=== PATIENT | female | born 1955 | race Caucasian/White ===

== ENCOUNTER → 2016-08-26 | Outpatient (CLI) | payer OTHER ==
--- NOTE | 2016-08-26 11:30 | EKG ---
[address] [address] Measurements Intervals [place] Rate: 61 P: 72 AK: 141 QRS: 74 QRSD: 118 T: 67 QT: 405 QTc: 407 Interpretive Statements SINUS RHYTHM MODERATE INTRAVENTRICULAR CONDUCTION DELAY [110+ ms QRS DURATION] No previous ECG available for comparison Electronically Signed On 09-01-16 09:39:28 MDT by Elmer Okeefe MD [email or web address]
[2016-08-26 11:55] LABS: HEMATOCRIT 43.2 % (37.0-47.0); HEMOGLOBIN 13.9 g/dL (12.0-16.0); MEAN CORPUSCULAR HEMOGLOBIN 28.5 PG (27-31); MEAN CORPUSCULAR HGB CONC 32.2 g/dL (33-37); MEAN CORPUSCULAR VOLUME 88.7 FL (81-99); MEAN PLATELET VOLUME 9.2 FL (7.4-12.2); RED BLOOD COUNT 4.87 10^6/uL (4.20-5.40)
[2016-08-26 12:10] LABS: BLOOD UREA NITROGEN 15 mg/dL (7-22)
[2016-08-26 12:11] LABS: CALCIUM 9.6 mg/dL (8.7-10.7); EST GLOMERULAR FILTRATION > 60 (>60 ml/min/1.73m(2))
== END ==
LOC: LAB 10:52
PROVIDERS: ATTEND Obstetrics & Gynecology
DX: Z86.39 Personal history of other endocrine, nutritional and metabolic disease (principal); I45.89 Other specified conduction disorders
CPT/HCPCS: 36415; 80048; 85027; 93005; 93010

== ENCOUNTER 2016-09-18 06:18 | Observation (INO) | payer OTHER ==
[2016-09-18] MEDS ORDERED: LIDOCAINE W/ SODIUM BICARB 0.5 ML SYR ONE (06:24)
[2016-09-18] MEDS ORDERED: Sodium Chloride 0.9% 100 ML IV ONE (06:25)
[2016-09-18] MEDS ORDERED: Lactated Ringers 2,000 ML PRIMARY IV ONE (06:25)
[2016-09-18] MEDS ORDERED: BUPIVACAINE 0.25% W/ EPI - 10 ML VIAL ONE (06:49)
[2016-09-18] MEDS ORDERED: LIDOCAINE HCL 2 % 10 ML JELLY URO-JECT TOPICAL ONE (06:50)
[2016-09-18 07:08] LABS: HEMATOCRIT 42.5 % (37.0-47.0); HEMOGLOBIN 13.9 g/dL (12.0-16.0)
[2016-09-18] MEDS ORDERED: fentaNYL Inj 250 MCG/5 ML VIAL ONE (07:13)
[2016-09-18] MEDS ORDERED: MIDAZOLAM 5 MG/1 ML ONE (07:13)
[2016-09-18] MEDS ORDERED: LIDOCAINE MPF 2% - 5 ML (20 MG/1 ML) ONE (07:13)
[2016-09-18] MEDS ORDERED: REMIFENTANIL 1 MG/1 ML IV ONE ×3 (07:14→10:32)
[2016-09-18] MEDS ORDERED: ROCURONIUM 10 MG/1 ML - 5 ML VIAL IVP ONE (07:15)
[2016-09-18] MEDS ORDERED: Sodium Chloride 0.9% vial 20 ML ONE ×2 (07:17→09:28)
[2016-09-18] MEDS ORDERED: ONDANSETRON 4 MG/2 ML VIAL ONE (07:28)
[2016-09-18] MEDS ORDERED: Acetaminophen 1000mg Inj 100 ML IV ONE (07:29)
[2016-09-18] MEDS ORDERED: DEXAMETHASONE SOD PHOSPHATE 4 MG/1 ML VIAL ONE (07:29)
[2016-09-18] MEDS ORDERED: Sodium Chloride 0.9% 250 ML IV ONE (08:24)
[2016-09-18] MEDS ORDERED: PHENYLEPHRINE 10,000 MCG/1 ML VIAL ONE (08:25)
[2016-09-18] MEDS ORDERED: KETAMINE 100 MG/1 ML - 5 ML ONE (08:37)
[2016-09-18] MEDS ORDERED: Opium-Belladonna 30-16.2mg 1 EACH SUPP.RECT RECTAL ONE (08:47)
[2016-09-18] MEDS ORDERED: Lactated Ringers 1,000 ML PRIMARY IV ONE ×2 (09:49→11:20)
[2016-09-18] MEDS ORDERED: HYDROmorphone 2 MG/1 ML ONE (11:35)
[2016-09-18] MEDS ORDERED: NORMAL SALINE 10 ML SYRINGE FLUSH IVP PRN ×2 (12:07→12:46)
[2016-09-18] MEDS ORDERED: Ondansetron ODT Tab 8 MG TAB PO PRN (12:07)
[2016-09-18] MEDS ORDERED: HYDROcodone-APAP 5 MG -325 MG TABLET PO PRN (12:07)
[2016-09-18] MEDS ORDERED: IBUPROFEN 800 MG TABLET PO PRN (12:07)
--- NOTE | 2016-09-18 12:14 | OB.OP.NOTE ---
Operative Report Surgeon: Naga Reed [employer] Specialist: Henry Tovar MD Anesthesia Type: General Anesthesia Provider: Robel Kimball CRNA Surgery Date: 09/18/16 Preoperative Diagnosis: Symtpomatic Uterovaginal Prolapse Postoperative Diagnosis: Same Procedure: da Rogelio Supracervical Hysterectomy/BSO/TVT-O/Robotic Sacral Colpopexy/Cystoscopy Estimated Blood Loss (mL): 50 Fluids: 3500 ml Complications: None Findings at Surgery: Normal menopausal uterus, tubes and ovaries. Good placement of colpopexy mesh and TVT mesh without tension. No visible evidence of bowel, bladder, or ureter injury. At cysto, the ureters were seen to eject urine indicating patency and function. The bladder was intact. Indications for the Procedure: Symptomatic uterovaginal prolapse Description of Procedure: See dictated operative report. Plan: Overnight observation and discharge to home in the morning.
[2016-09-18] MEDS ORDERED: Prochlorperazine Edisylate Inj 10mg/2ml vial IVP PRN (12:46)
[2016-09-18] MEDS ORDERED: HYDROmorphone 2 MG/1 ML IVP PRN (12:46)
[2016-09-18] MEDS ORDERED: fentaNYL Inj 100 MCG/2 ML VIAL IVP PRN (12:46)
[2016-09-18] MEDS: Lactated Ringers 1,000 ML PRIMARY IV SCH ×2 (14:27→16:28)
[2016-09-18 18:09] VITALS: RESP 16
[2016-09-18] MEDS: KETOROLAC 30 MG/1 ML VIAL IVP PRN (19:50)
[2016-09-18] MEDS: DOCUSATE 100 MG CAPSULE PO SCH (20:09)
[2016-09-19] MEDS: Lactated Ringers 1,000 ML PRIMARY IV SCH (02:20)
[2016-09-19] MEDS: KETOROLAC 30 MG/1 ML VIAL IVP PRN (02:21)
[2016-09-19 05:12] VITALS: TEMP 98.8
--- NOTE | 2016-09-19 08:00 | DCSUMMARY ---
Hospitalization Summary Admit Date: 09/18/16 Discharge Date: 09/19/16 Primary Diagnosis:: Symptomatic Pelvic Relaxation Hospital Course: Pt. underwent a robotic supracervical hysterectomy with BSO, TVT-O, Robotic Sacral Colpopexy and cystoscopy without complication. She was observed overnight and discharged to home in good condition. Exam - Vitals Vital Signs: Vital Signs Temperature 98.8 F Temperature Source Temporal Artery Scan Pulse Rate [Telemetry] 70 Pulse Rate 55 Respiratory Rate 16 Blood Pressure [Left Arm] 110/60 Blood Pressure 125/75 Pulse Ox 92 Oxygen Flow Rate 2 Oxygen Flow Rate 2 Oxygen Delivery Method Room Air Height 5 ft 6 in Weight 142 lb
[2016-09-19] MEDS: DOCUSATE 100 MG CAPSULE PO SCH (09:14)
--- NOTE | 2016-09-19 10:01 | CRNA.PROGR ---
Anesthesia Note Anesthesia Progress Note: Post OP Anesthesia Note Pt is sitting up in bed. She has been up ambulating, solo has been DC'd, and she is waiting to void and be discharged. She has been tolerating a regular diet and denies any N/V. Pain is well under control. Current VS are stable. Vital Signs (Last 8 hours) Temp Pulse Pulse Resp BP Pulse Ox 09/19/16 08:06 98.8 F 83 16 97/56 95 09/19/16 07:00 74 09/19/16 05:08 92 09/19/16 05:00 98.8 F 55 L 16 110/60 96
== END 2016-09-19 11:25 | disposition home or self-care (01) ==
LOC: SDSC 06:18 → MED/SURG 12:07
PROVIDERS: ADMIT Obstetrics & Gynecology; ATTEND Obstetrics & Gynecology
DX: N81.4 Uterovaginal prolapse, unspecified (principal); N81.89 Other female genital prolapse
CPT/HCPCS: 57288; 57425; 58552; 85014; 85018; 94761; A4216; J0131; J0694; J1885 ×2; J2704; J3010; Q0162; 96374; J1100; J1170; J2001; J2250; J2370; J2405; J7050; J7120

== ENCOUNTER → 2016-11-19 | Outpatient (CLI) | payer OTHER ==
[2016-11-19 11:23] LABS: BILIRUBIN,URINE NEGATIVE (NEG); CLARITY,URINE CLEAR (CLEAR); COLOR,URINE YELLOW; GLUCOSE, URINE (UA) NEGATIVE (NEG); NITRATE,URINE NEGATIVE (NEG); OCCULT BLOOD,URINE SMALL (NEG); PROTEIN,URINE NEGATIVE (NEG); UROBILINOGEN,URINE 0.2 mg/dL (0.2)
[2016-11-19 11:28] LABS: BACTERIA,URINE FEW; RBC,URINE 0-3 /hpf; URINE SAMPLE TYPE CLEAN CATCH URINE
== END ==
LOC: LAB 11:04
PROVIDERS: ATTEND Obstetrics & Gynecology
DX: R30.0 Dysuria (principal)
CPT/HCPCS: 81001; 87077; 87088; 87186